=== PATIENT | male | born 1995 | race Caucasian/White ===

== ENCOUNTER 2019-12-03 08:00 | Emergency (ER) | payer OTHER, SELFPAY ==
[2019-12-03 08:10] VITALS: BP 153/75; PULSE 99; RESP 16; TEMP 36.8; O2SAT 100
--- NOTE | 2019-12-03 08:11 | ED.URI ---
HPI - URI/Sore Throat General Chief Complaint: Upper Respiratory Infection Stated Complaint: ear problems, cough and weak Time Seen by Provider: 12/03/19 08:17 Source: patient and RN notes reviewed Mode of arrival: ambulatory Limitations: no limitations History of Present Illness HPI Narrative: 24-year-old male presents with concern for nasal congestion, right ear pain, drainage, cough. Reports symptoms for 4 days. He denies fever, shortness of breath. Denies taking any [id number] medications. Reports frequent swimming MD elicited complaint: nasal congestion and other (Ear pain) Related Data Allergies Allergy/AdvReac Type Severity Reaction Status Date / Time No Known Allergies Allergy Unverified 12/01/18 09:10 Review of Systems Review of Systems: Narrative: CONSTITUTIONAL: Reports malaise. Denies chills, sweats, or fever. EYES: Denies visual changes, redness, or discharge. ENT: Reports rhinorrhea, congestion, ear pain. Denies sinus pain and sore throat. CARDIOVASCULAR: Denies chest pain, palpitations, or edema. RESPIRATORY: Reports cough. Denies dyspnea. GASTROINTESTINAL: Denies abdominal pain, nausea, vomiting, diarrhea SKIN: Denies rash or itching. MUSCULOSKELETAL: Denies myalgia. NEUROLOGIC: Denies headache. All systems reviewed & are unremarkable except as noted in HPI and below PMFSH Comments At time of signature, agree with nursing past medical, surgical, social and family history. There is no relevant family history pertinent to the presenting complaint Exam Narrative: Exam Narrative: GENERAL: Well-appearing, well-nourished, and in no acute distress. HEAD: Normocephalic EYES: PERRLA, conjunctivae clear ENT: Nares clear, turbinates edematous and erythematous, clear discharge. Mucous membranes moist. Left TM pearly au with dull light reflex, right TM not visible due to excessive drainage in the right canal; no tragal tenderness. Oropharynx not erythematous without lesions. Tonsils not enlarged and without exudate, no drooling, no hoarseness, no trismus, uvula midline. NECK: Supple. No lymphadenopathy CHEST: Clear to auscultation, breath sounds equal. No wheezing, rhonchi, rales, or stridor. No respiratory distress, speaks in full sentences. HEART: Regular rate and rhythm. No murmur heard. SKIN: Warm, dry, no rash. NEURO: Alert and oriented x3. PSYCH: Normal mood and affect Course Course Emergency Course: Patient is aware of diagnosis, understands and agrees to treatment plan. Anticipatory guidance given. Patient agrees to follow-up as directed and is aware of reasons to seek care at the emergency department. Portions of this record may have been created with voice recognition software Vital Signs Vital signs: Vital Signs Temperature 98.2 F 12/03/19 08:10 Pulse Rate 99 12/03/19 08:10 Respiratory Rate 16 12/03/19 08:10 Blood Pressure 153/75 H 12/03/19 08:10 Pulse Oximetry 100 12/03/19 08:10 Temperature 98.2 F 12/03/19 08:10 Pulse Rate 99 12/03/19 08:10 Respiratory Rate 16 12/03/19 08:10 Blood Pressure 153/75 H 12/03/19 08:10 Pulse Oximetry 100 12/03/19 08:10 Reviewed. MDM - URI/Sore Throat MDM Narrative Medical decision making narrative: Differential diagnosis considered: Strep pharyngitis, allergic rhinitis, upper respiratory tract infection, sinusitis, rhinosinusitis, nasopharyngitis. viral pharyngitis, otitis media, otitis externa, pneumonia, bronchitis, viral cough syndrome, viral syndrome, and influenza. Exam findings show no acute concerns or changes; patient is non-toxic appearing and is in no distress. Patient is appropriate for outpatient treatment and follow-up. Critical Care Time Critical Care Time Critical Care Time: No Discharge Plan Discharge Clinical Impression: Otitis media Qualifiers: Otitis media type: suppurative Chronicity: acute Laterality: right Recurrence: non-recurrent Spontaneous tympanic membrane rupture: with spontaneous rupture Melo
== END 2019-12-03 08:32 | disposition home or self-care (01) ==
PROVIDERS: Emergency Provider Nurse Practitioner
DX: H66.011 Acute suppurative otitis media with spontaneous rupture of ear drum, right ear (principal); J45.909 Unspecified asthma, uncomplicated
CPT/HCPCS: 99213; G0463

== ENCOUNTER 2020-10-24 15:19 | Emergency (ER) | payer OTHER, SELFPAY ==
--- NOTE | ~2020-10-24 | XR_ITS ---
EXAMINATION: XR ankle RT min 3V EXAM DATE: 10/24/2020 15:38 INDICATION: Inversion injury, medial and lateral right ankle pain. Initial encounter. TECHNIQUE: Right ankle frontal, lateral and oblique projections obtained and reviewed. There is no p rior study for comparison. FINDINGS: There is avulsion at the base of the right medial malleolus with about 6 mm of distraction and lateral dislocation of this, the talar dome, and the lateral malleolus. Corresponding oblique fra cture through the right distal fibular metaphysis into the distal tibiofibular syndesmosis, which renata ears widened. No definite posterior malleolar fracture identified. IMPRESSION: Right medial malleolar base, fibular metaphyseal fractures with mortise and syndesmosis disruption. Lateral displacement of talus. Reviewed, dictated and finalized at location A. IMPRESSION: Right medial malleolar base, fibular metaphyseal fractures with mo rtise and syndesmosis disruption. Lateral displacement of talus.
[2020-10-24 15:24] VITALS: BP 160/96; PULSE 102; RESP 16; TEMP 37.7; O2SAT 100
--- NOTE | 2020-10-24 15:27 | ED.LOWEXIN ---
HPI - Extremity Injury (Lower) General Chief Complaint: Extremity Injury, Upper Stated Complaint: rt ankle inj Time Seen by Provider: 10/24/20 15:27 Source: patient and RN notes reviewed History of Present Illness HPI Narrative: Patient is a 25-year-old male who presents the urgent care with complaints of right ankle pain and swelling. Patient states that he rolled the right ankle while rollerskating and [place] today. Patient states that happened just prior to arrival and he has not done anything for pain. Patient states it is very difficult to bear weight on the foot. No other acute complaints. No acute distress noted. Patient aware of the plan of care. Some parts of this dictation were generated by voice recognition software and may contain typographical and/or grammatical inaccuracies. Related Data Home Medications Medication Instructions Recorded Confirmed No Home Medications 10/24/20 10/24/20 Allergies Allergy/AdvReac Type Severity Reaction Status Date / Time No Known Allergies Allergy Verified 10/24/20 15:25 Review of Systems Review of Systems: Narrative: CONSTITUTIONAL: Denies fever, chills, or sweats. EYES: Denies visual changes, redness, or discharge. ENT: Denies rhinorrhea, congestion, sore throat, or otalgia. CARDIOVASCULAR: Denies chest pain, palpitations, or edema. RESPIRATORY: Denies cough or dyspnea. GASTROINTESTINAL: Denies abdominal pain, nausea, vomiting, or diarrhea. GENITOURINARY: Denies dysuria or hematuria. SKIN: Denies rash or itching. MUSCULOSKELETAL: Reports of right ankle pain and swelling NEUROLOGIC: Denies headache, numbness, or weakness. All other systems reviewed are negative, except as documented in HPI. PMFSH Comments At the time of my signature, I reviewed and agree with the nursing past medical, surgical, social, and family history. There is no relevant family history pertinent to the patient complaint. Exam Narrative: Exam Narrative: GENERAL: This is a well-nourished, well-developed patient, in no apparent distress. HEAD: normocephalic, atraumatic. EYES: PERRL. Sclera clear/white. Vision is grossly intact. EARS: External ears normal NOSE: External nose normal with no obvious nasal discharge, nares without redness, no rhinorrhea. THROAT: Mucous membranes moist NECK: Neck supple SKIN: warm, intact with no suspicious lesions or rash, good texture and turgor. NEURO: awake, alert, and oriented to person, place and time. There were no obvious focal neurologic abnormalities. EXTREMITIES: Moderate medial and lateral right ankle edema and tenderness. Positive strong right pedal pulse with capillary refill less than 2 seconds. Range of motion limited due to pain. Course Vital Signs Vital signs: Vital Signs Temperature 100 F H 10/24/20 15:24 Pulse Rate 102 H 10/24/20 15:24 Respiratory Rate 16 10/24/20 15:24 Blood Pressure 160/96 H 10/24/20 15:24 Pulse Oximetry 100 10/24/20 15:24 Temperature 100 F H 10/24/20 15:32 Pulse Rate 102 H 10/24/20 15:32 Respiratory Rate 16 10/24/20 15:32 Blood Pressure 160/96 H 10/24/20 15:32 Pulse Oximetry 100 10/24/20 15:32 Reviewed-patient is informed that they may have pre-hypertension or hypertension based on a blood pressure reading in the department. I recommend the patient call the primary care provider listed on their discharge instructions or a physician of their choice this week to arrange follow-up for further evaluation of possible pre-hypertension or hypertension. Procedures Orthopedic Splinting/Casting Injury #1: Side: right Lower Extremity Injury Location: ankle OCL: short leg Pre-Procedure Neuro Vascular Exam: normal Post-Procedure Neuro Vascular Exam: normal Other Orthopedic Equipment: crutches Additional Comments: Short leg OCL applied to the right lower extremity by chief radiology. Patient instructed on the use of crutches and rules while wearing the OCL.
[2020-10-24 15:32] VITALS: BP 160/96; PULSE 102; RESP 16; TEMP 37.7; O2SAT 100
[2020-10-24 16:05] VITALS: BP 140/80; PULSE 98
[2020-10-24] MEDS: IBUPROFEN 400 MG TABLET 800 MG PO (16:33)
--- NOTE | 2020-10-24 17:56 | PC.NURSE ---
1700 spoke with grandparent and uncle arriving to assist in transport home. reviewed discharge instructions at pt request. family assists pt to car in w/c, tolerates well. states pain lessening following ibuprofen
== END 2020-10-24 17:00 | disposition home or self-care (01) ==
PROVIDERS: Emergency Provider Nurse Practitioner Family
DX: S82.51XA Displaced fracture of medial malleolus of right tibia, initial encounter for closed fracture (principal); S89.301A Unspecified physeal fracture of lower end of right fibula, initial encounter for closed fracture; X50.9XXA Other and unspecified overexertion or strenuous movements or postures, initial encounter; Y93.51 Activity, roller skating (inline) and skateboarding
CPT/HCPCS: 29125; 73610; 99214; A9270; G0463

== ENCOUNTER → 2020-10-28 10:08 | Outpatient (CLI) | payer OTHER, SELFPAY ==
[2020-10-28 16:17] LABS: SARS-CoV-2 RNA PCR Negative
== END ==
PROVIDERS: Visit Provider Orthopaedic Surgery
DX: Z01.812 Encounter for preprocedural laboratory examination (principal); Z20.822 Contact with and (suspected) exposure to COVID-19
CPT/HCPCS: C9803; U0003; U0005

== ENCOUNTER 2020-10-30 17:38 | Inpatient (IN) | payer OTHER, SELFPAY ==
[2020-10-28 14:43] VITALS: BMI 25.3
--- NOTE | 2020-10-29 08:52 | P.PNAN_ITS ---
Anes - Initial Pre Proc Eval Procedure: Operation Date: 10/30/20 12:00 Proposed Procedures p Open Reduction Internal Fixation Bimalleolar Right Ankle Fracture - Vincent Sanchez MD Date/Time: 10/29/20 08:52 Surgeon: Vincent Sanchez MD Pre Op Diagnosis: Right Ankle Fx Patient Data Age: 25 Gender: M Height: 1.7 m Weight: 73.5 kg Allergies Allergy/AdvReac Type Severity Reaction Status Date / Time No Known Allergies Allergy Verified 10/30/20 09:52 Home Medications Medication Instructions Recorded Confirmed Type No Home Medications 10/24/20 10/28/20 History Patient hx anesthesia problems: none Family hx anesthesia problems: none [facility] Past Medical History Medical History (Updated 10/29/20 @ 08:52 by Desmond Farah DO) Asthma Bimalleolar fracture of right ankle Cerebral palsy Social History Social History Smoking status: Never smoker Alcohol intake: never Substance use: never Substance use type: does not use Living arrangements: with family Spiritual care concerns: No Anes - Eval Final PreProcedure Day of Procedure 10/29/20 08:52 Patient weight: overweight Heart: regular rate and rhythm Lungs: clear to auscultation and normal air movement Airway: Mallampati scale class II Neurological: alert and oriented Last oral intake: >/= 8 hours ASA classification: III Emergent: no Anesthetic plan: proceed Anesthesia type and monitoring: general LMA and standard monitoring Informed Consent: The patient's anesthetic plan and its attendant risks and benefits were discussed with the patient/family/POA. Questions were solicited and answers provided to the satisfaction of the patient/family/POA.
[2020-10-30] VITALS (10 sets, daily range): BP systolic 139–168; BP diastolic 74–94; PULSE 100–112; RESP 14–18; TEMP 36.2–37.2; O2SAT 94–99
--- NOTE | ~2020-10-30 | XR_ITS ---
EXAMINATION: XR surgery orthopedic, XR ankle LT 2V INDICATION: Open reduction and internal fixation of the right ankle TECHNIQUE: Three intraoperative fluoroscopic views of the right ankle and one intraoperative fluorosc opic view of the left ankle are submitted for review. Total fluoroscopic time was 248.6 seconds. COMPARISON: None available FINDINGS: Fluoroscopic images demonstrate plate and screw fixation of the distal fibula and screw fix ation of the medial malleolus. Alignment is anatomic. The left ankle appears normal. IMPRESSION: 1. Please refer to procedure note for full details. Reviewed, dictated and finalized at location A. IMPRESSION: 1. Please refer to procedure note for full details.
[2020-10-30] MEDS: LACTATED RINGERS 1,000 ML 30 ML IV CONT ×2 (10:10→16:38)
[2020-10-30] MEDS: KETOROLAC 15 MG/ML VIAL (*BKC) IV PUSH (10:19)
--- NOTE | 2020-10-30 12:02 | WPDHPUPDATE1 ---
History and Physical Update Update Date/Time: 10/30/20 12:02 History and Physical has been reviewed, including an updated exam of the patient. There are NO changes in the patient's condition. Risks, benefits, and alternatives have been discussed and questions answered. Patient agrees to proceed with procedure.
[2020-10-30] MEDS: ceFAZolin 2 GM/D5W 50 ML 2 GM/50 ML BAG IVPB ×2 (12:22→19:55)
[2020-10-30] MEDS: LIDO 1%/EPINEPHRINE 1:100,000 50 ML VIAL 30 ML INFILTRATE (12:52)
--- NOTE | 2020-10-30 14:07 | SUR.OPER ---
Dr. Sanchez made aware of 1 hour tourniquet time. An additional 30 minutes added
[2020-10-30] MEDS: ceFAZolin SODIUM 1 GM VIAL 2 GM IV PUSH (16:08)
--- NOTE | 2020-10-30 17:01 | P.OP_ITS ---
Procedure Note - Detailed Date of procedure: 10/30/20 Pre-op diagnosis: Right Ankle Fx Post-op diagnosis: other (1. Displaced bimalleolar fracture dislocation 2. Tibia fibula syndesmosis disruption) Procedure performed: 1. ORIF bimalleolar ankle fracture 2. ORIF distal tibia- fibula syndesmosis Description of procedure: Comminuted fracture dislocation with syndesmosis disruption. Moderate swelling and lateral foot erythema. Skin wrinkles present. Will keep inpatient for antibiotics and strict elevation. Implants: Arthrex distal fibular locking plate. 4.0 mm partially threaded cannulated screw medial. Syndesmosis tight rope fixation x 2. Anesthesia: GETA Surgeon: Vincent Sanchez MD Surveillance Operator: Daayn Watson PA-C Estimated blood loss (mL): 50 Tourniquet time (min): 120 Drains: No Complications: None Condition: stable Disposition: PACU Findings: Physician automotive parts counter assistant, Dayan Watson PA-C, required for surgery; including patient positioning, draping, tissue retraction, maintaining instrument position and fracture reduction, wound closure, and dressing placement. A general anesthetic was administered. The limb was prepped and draped in the usual sterile fashion with a well-padded tourniquet high on the thigh. A bump was placed under the hip. The limb was exsanguinated and the tourniquet inflated to 300 millimeters of mercury during the procedure. A longitudinal incision was created at the distal fibula. Careful dissection was carried down to bone. Perineal nerve branches were protected. The fracture was carefully exposed. Callus and debris was irrigated from the wound. The fracture was brought out to length. Reduction was accomplished with the reduction forceps. The fixation plate was contoured. Fixation was performed with a combination of cortical and cancellous screws. Fluoroscopy was used throughout the procedure to confirm anatomic reduction and appropriate placement of the implants. The medial malleolus was exposed with a longitudinal incision. The fracture was cleared of debris and irrigated. Anatomic reduction was obtained with the re duction tool. Biplanar fluoroscopy was used to assess the fracture reduction and guide placement of the K-wire. Two K-wires were placed parallel across the fracture site. The screw lengths were measured and drilled distally only. The anterior long partially threaded screw was placed, and the K-wire removed. The posterior screw cut the tight rope and was thus removed. It also had the effect of malreduction the fracture. The fracture was stable with one screw. The proximal tight rope was replaced. The tourniquet was released. Copious irrigation with antibiotic solution was performed periodically throughout the procedure. Meticulous hemostasis was obtained. Wound was closed in layers with 2-0 Vicryl suture 3-0 Monocryl suture and 3-0 Nylon. A sterile splint with padding was applied. The patient was extubated and brought to the recovery room in stable condition. There were no complications.
--- NOTE | 2020-10-30 17:45 | ADMGEN ---
This patient, Esau Pryor, was admitted to Medical Room 340-01. Patient/family oriented to hospital policies and general routines including ID bracelet, bed and alarms, visiting hours, pain management, procedures, bathroom and other care routines, personal items, smoking policy, room service/diet, and visiting hours. Information on how to activate the Rapid Response Team has been discussed. Patient/Family are encouraged to report perceived risks to care and to ask questions if they do not understand what they are told or what they should do.
[2020-10-30] MEDS: KETOROLAC 15 MG/ML VIAL (*BKC) IM (18:44)
[2020-10-30] MEDS: ASPIRIN 81 MG ENTERIC TABLET PO (18:45)
[2020-10-31] VITALS (7 sets, daily range): BP systolic 130–153; BP diastolic 68–81; PULSE 88–107; RESP 16–20; TEMP 36.1–36.7; O2SAT 97–100
[2020-10-31] MEDS: KETOROLAC 15 MG/ML VIAL (*BKC) IM ×2 (00:02→05:50)
[2020-10-31] MEDS: ceFAZolin 2 GM/D5W 50 ML 2 GM/50 ML BAG IVPB ×3 (03:45→20:35)
[2020-10-31] MEDS: DOCUSATE SODIUM 100 MG CAPSULE PO ×2 (09:52→16:41)
[2020-10-31] MEDS: ASPIRIN 81 MG ENTERIC TABLET PO ×2 (09:52→16:41)
--- NOTE | 2020-10-31 12:24 | WPDANESPN ---
Anes - Prog Note Post-Op Date/Time: 10/31/20 12:24 Cardiovascular status: normal Respiratory status: normal Airway patency: baseline Mental status: baseline Post-Op hydration status: normal Vital Signs: Last Vital Signs Temp 36.4 C 10/31/20 03:58 Pulse 107 H 10/31/20 05:47 Resp 16 10/31/20 03:58 BP 153/80 H 10/31/20 03:58 Pulse Ox 97 10/31/20 05:47 Pain Score (VAS): 0 I/O: Intake & Output 10/30/20 10/31/20 10/31/20 23:59 07:59 15:59 Intake Total 650 890 240 Output Total 400 300 Balance 650 490 -60 Post-procedural complaints: none Patient Feedback: Patient satisfied with anesthetic care.
--- NOTE | 2020-10-31 12:28 | PM.PNORT ---
Progress Note: A&P Assessment and Plan (1) Bimalleolar fracture of right ankle: Qualifiers: Encounter type: initial encounter Fracture type: closed Qualified Code(s): S82.841A - Displaced bimalleolar fracture of right lower leg, initial encounter for closed fracture Code(s): S82.841A - Displaced bimalleolar fracture of right lower leg, initial encounter for closed fracture Status: Acute (2) No active medical problems: Status: Acute (3) Cellulitis and abscess of foot excluding toe: Code(s): L03.119 - Cellulitis of unspecified part of limb; L02.619 - Cutaneous abscess of unspecified foot Status: Acute Assessment and Plan: Doing well post op day 1 Continue IV ancef. Will check wound tomorrow. Possible discharge if edema and erythema improved. Subjective Subjective Date/Time Seen: 10/31/20 21:44 Interval history: status post ankle ORIF doing well postoperative day 1. Pain well controlled Mobilizing well with therapy Exam Narrative: Exam Narrative: Afebrile. No distress. Short leg splint intact. No warmth or erythema Neurovascular status intact, wiggles toes Objective Data Vital Signs Vital Signs: Vital Signs - 24 hr 10/31/20 00:10 10/31/20 03:58 10/31/20 05:47 Temperature 36.3 C L 36.4 C Pulse Rate 96 96 107 H Respiratory Rate 16 16 Blood Pressure 147/81 H 153/80 H Pulse Oximetry 99 98 97 10/31/20 10:00 10/31/20 14:00 10/31/20 18:00 Temperature 36.7 C 36.4 C 36.1 C L Pulse Rate 98 91 88 Respiratory Rate 18 18 20 Blood Pressure 140/79 144/71 H 130/68 Pulse Oximetry 97 99 100 10/31/20 20:39 Temperature 36.2 C L Pulse Rate 95 Respiratory Rate 16 Blood Pressure 148/79 H Pulse Oximetry 99 Intake/Output Intake/Output: Intake & Output 10/28/20 10/29/20 10/30/20 10/31/20 23:59 23:59 23:59 23:59 Intake Total 700 2410 Output Total 1800 Balance 700 610 Meds/Results Medications: Active Medications Generic Name Dose Route Start Last Admin Trade Name Freq PRN Reason Stop Dose Admin Aspirin 81 mg 10/30/20 17:38 10/31/20 16:41 Aspirin 81 Mg Enteric Tablet PO 81 mg BID LAMAR Administration Docusate Sodium 100 mg 10/30/20 17:38 10/31/20 16:41 Docusate Sodium 100 Mg Capsule PO 100 mg BID LAMAR Administration Cefazolin Sodium 2 gm in 50 mls @ 100 mls/hr 10/30/20 20:00 10/31/20 20:35 Ancef 2 Gm/D5w 50 Ml IVPB 11/01/20 20:01 100 mls/hr Q8H LAMAR Administration Magnesium Hydroxide 30 ml 10/30/20 17:38 Magnesium Hydroxide Susp 30 Ml Udc PO BID PRN Constipation Ondansetron HCl 4 mg 10/30/20 17:38 Ondansetron Inj 4 Mg/2 Ml Vial IV PUSH Q4H PRN Nausea And Vomiting Oxycodone HCl 10 mg 10/30/20 17:38 10/31/20 17:08 Oxycodone Hcl (*Crx) 5 Mg Tab Ir PO 10 mg Q4H PRN Administration Pain Rated 7-10 Oxycodone HCl 5 mg 10/30/20 17:38 Oxycodone Hcl (*Crx) 5 Mg Tab Ir PO Q4H PRN Pain Rated 4-6 Radiology Results: ITS Impressions Ankle X-Ray 10/30/20 23:14 IMPRESSION: 1. Please refer to procedure note for full details. Intraoperative X-Ray 10/30/20 23:14
[2020-10-31] MEDS: oxyCODONE HCL (*CRX) 5 MG TAB IR 10 MG PO ×3 (13:07→23:47)
[2020-11-01] MEDS: ceFAZolin 2 GM/D5W 50 ML 2 GM/50 ML BAG IVPB (04:48)
[2020-11-01] MEDS: oxyCODONE HCL (*CRX) 5 MG TAB IR PO ×2 (04:51→08:53)
[2020-11-01 06:06] VITALS: BP 132/72; PULSE 92; RESP 16; TEMP 36.3; O2SAT 99
[2020-11-01] MEDS: ASPIRIN 81 MG ENTERIC TABLET PO (08:51)
[2020-11-01] MEDS: DOCUSATE SODIUM 100 MG CAPSULE PO (08:51)
--- NOTE | 2020-11-01 10:06 | PM.DS ---
DS: Admitting Diagnosis Admitting Diagnosis Admitting Diagnosis: Cellulitis and marissa ankle fracture DS: Discharge Diagnosis Discharge Diagnosis (1) Cellulitis and abscess of foot excluding toe: Code(s): L03.119 - Cellulitis of unspecified part of limb; L02.619 - Cutaneous abscess of unspecified foot Status: Acute (2) Bimalleolar fracture of right ankle: Qualifiers: Encounter type: initial encounter Fracture type: closed Qualified Code(s): S82.841A - Displaced bimalleolar fracture of right lower leg, initial encounter for closed fracture Code(s): S82.841A - Displaced bimalleolar fracture of right lower leg, initial encounter for closed fracture Status: Acute Assessment and Plan: POD #2 ORIF Bimalleolar ankle fracture. Patient is progressing very well with physical therapy. He understands that he is nonweightbearing and must use a walker. He understands he must keep his leg elevated to decrease swelling and heal from the cellulitis. We had a lengthy discussion about the risks if he does not follow these instructions. Patient shows good understanding. We discussed postoperative wound care, expectations, exercises. He shows good understanding. I would like him to take Keflex 4 times a day for the next 2 weeks. He will call us if he notices any fever or worsening pain or swelling. We will follow up with him likely Monday. Patient may discharge home. Ortho instructions: D/C home Office will call to set up appointment for Monday. Wound Care: Keep splint on, clean, and dry. PT: Non weight bearing with walker. Antibiotic: Keflex four times a day for 2 weeks Pain medication: Percocet. May take ibuprofen in between DS: Summary Hospital Course Hospital Course: Patient was admitted to the hospital Monday after ORIF by [facility]. There was found that patient had cellulitis with significant swelling. He was admitted to the hospital for IV antibiotics. Patient participated very well with physical therapy. He shows good understanding that he must be nonweightbearing for the next 2 weeks. Cellulitis has decreased and looks to be responding to the Keflex. Time Spent with Patient Time attestation: Total time spent providing and/or coordinating discharge services: Exam Narrative: Exam Narrative: Pleasant 25-year-old male. No acute distress. Alert and oriented x3. Afebrile. Short leg splint intact. Some dry blood drainage from incision sites. No drainage currently. decreased erythema and swelling. Slight warmth. Cellulitis looks much better than it did prior to surgery. Neurovascular status intact, wiggles toes. distal pulses palpable. Good capillary refill. Discharge Plan Discharge Attending physician on discharge: Vincent Sanchez Discharging Clinician: Dayan Watson Patient Disposition: Home, Self-Care Activity: other - see discharge instructions Diet: regular Wound Care Instructions: other - see discharge instructions Discharge Instructions: Ortho instructions: D/C home Office will call to set up appointment for Monday. Wound Care: Keep splint on, clean, and dry. PT: Non weight bearing with walker. Antibiotic: Keflex four times a day for 2 weeks Pain medication: Percocet. May take ibuprofen in between. Patient Instructions: Antibiotic Form Stand Alone Forms: General Discharge Information Follow-up/Referrals: Dayan Watson PA [Physician Outreach Manager] - Discharge Medications: New cephalexin 500 mg capsule 500 mg PO QID 14 Days Qty: 56 RF: 0 oxycodone-acetaminophen 5-325 mg tablet 1 - 2 tablet PO Q4-6H MDD 6 PRN (Reason: pain) Qty: 30 RF: 0 Date of admission: 10/30/20 17:38 Primary Care Provider: PHYSICIAN,CRM COORDINATOR Admitting Provider: Vincent Sanchez Attending physician on admission: Vincent Sanchez Condition: Stable
== END 2020-11-01 12:50 | disposition home or self-care (01) | DRG 493 ==
LOC: ANH3MED 17:41
PROVIDERS: Admitting Provider Orthopaedic Surgery; Visit Provider Orthopaedic Surgery
PROC: 0QSJ04Z Reposition Right Fibula with Internal Fixation Device, Open Approach (ICD-10-PCS; principal; 2020-10-30 12:00)
DX: S82.841A Displaced bimalleolar fracture of right lower leg, initial encounter for closed fracture (principal); L03.119 Cellulitis of unspecified part of limb; L02.619 Cutaneous abscess of unspecified foot; S93.431A Sprain of tibiofibular ligament of right ankle, initial encounter; X58.XXXA Exposure to other specified factors, initial encounter; J45.909 Unspecified asthma, uncomplicated; G80.9 Cerebral palsy, unspecified
CPT/HCPCS: 73600; 97161; A9270; C1713; C1769; J0131; J0690; J1170; J1885; J2250; J2405; J2704; J3010; J7120

== ENCOUNTER 2021-11-05 08:03 | Emergency (ER) | payer OTHER, SELFPAY ==
[2021-11-05 08:07] VITALS: BP 168/87; PULSE 96; RESP 18; TEMP 37.3; O2SAT 100
--- NOTE | 2021-11-05 08:07 | ED.URI ---
HPI - URI/Sore Throat General Chief Complaint: Upper Respiratory Infection Stated Complaint: cough and congestion fever Time Seen by Provider: 11/05/21 08:16 Source: patient, RN notes reviewed and old records reviewed Mode of arrival: ambulatory Limitations: no limitations History of Present Illness HPI Narrative: 26-year-old male who presents Express Care with complaints of initially sore throat which has improved but he has continued nasal and chest congestion with cough for the past 3 days.Patient reports that he has had low grade temperature denies any body aches or chills. Patient denies any shortness of breath with no tachypnea noted with SAO2 100% on room air. Patient has had COVID vaccinations and flu shot. MD elicited complaint: cough, sore throat, rhinorrhea and nasal congestion Onset (ago): day(s) (3) Able to tolerate fluids by mouth: Yes Treatments prior to arrival: cold medicine Related Data Allergies Allergy/AdvReac Type Severity Reaction Status Date / Time No Known Allergies Allergy Verified 10/30/20 18:21 Review of Systems Review of Systems: CONSTITUTIONAL: Low grade fever,no chills, or sweats. EYES: Denies visual changes, redness, or discharge. ENT: Positive for rhinorrhea, congestion, sore throat, no otalgia. CARDIOVASCULAR: Denies chest pain, palpitations, or edema. RESPIRATORY:Positive for cough denies dyspnea. GASTROINTESTINAL: Denies abdominal pain, nausea, vomiting, or diarrhea. GENITOURINARY: Denies dysuria or hematuria. SKIN: Denies rash or itching. MUSCULOSKELETAL: Denies back pain, joint pain, or myalgia. NEUROLOGIC: Denies headache, numbness, or weakness. PSYCHIATRIC: Denies anxiety or depression. [facility] Past Medical History Medical History Asthma Bimalleolar fracture of right ankle Cerebral palsy Family History Family History Mother Depression Father Depression Grandparent Asthma Cancer Hypertension Grandparent Cancer Heart disease Social History Social History Smoking status: Never smoker Second hand tobacco smoke exposure: No Alcohol intake: never Substance use: never Substance use type: does not use Gender identity (if verbalized by the patient): Male Sexual Orientation (if Verbalized by the Patient): Straight or Heterosexual Spiritual care concerns: No Comments At time of signature, agree with nursing past medical, surgical, social and family history. There is no relevant family history pertinent to the presenting complaint Exam Narrative: GENERAL: Well-appearing, well-nourished, and in no acute distress. HEAD: Normocephalic, atraumatic. EYES: PERRLA and EOMI. ENT: Nares red with clear rhinorrhea no epistaxis. Mucous membranes moist.TM's normal with dull light reflex, throat red with some white lesions on right tonsil with some redness, post nasal discharge. NECK: Supple.lymphadenopathy CHEST: Clear to auscultation. No respiratory distress.frequent cough noted no tachypnea, SAO2 100% on room air HEART: Regular rate and rhythm. No murmur heard. Normal peripheral pulses. ABDOMEN: Soft, nontender, nondistended, normal active bowel sounds. EXTREMITIES: Normal range of motion. No edema. SKIN: Warm, dry, no rash. NEURO: No focal deficits. Alert and oriented x3. Course Course Level of Care: Express Care Visit Vital Signs Vital signs: Vital Signs Temperature 37.3 C 11/05/21 08:07 Pulse Rate 96 11/05/21 08:07 Respiratory Rate 18 11/05/21 08:07 Blood Pressure 168/87 H 11/05/21 08:07 Pulse Oximetry 100 11/05/21 08:07 Oxygen Delivery Room Air 11/05/21 08:07 Temperature 37.3 C 11/05/21 08:07 Pulse Rate 96 11/05/21 08:07 Respiratory Rate 18 11/05/21 08:07 Blood Pressure 168/87 H 11/05/21 08:07 Pulse Oximetry 100 11/05/21 08:07 Oxygen Delivery Room Air
== END 2021-11-05 08:59 | disposition home or self-care (01) ==
PROVIDERS: Emergency Provider Registered Nurse; PCP Family Medicine
DX: J03.80 Acute tonsillitis due to other specified organisms (principal); R05.9 Cough, unspecified; J45.909 Unspecified asthma, uncomplicated
CPT/HCPCS: 87081; 87880; 99213; G0463

== ENCOUNTER 2022-02-02 11:19 | Outpatient (CLI) | payer OTHER, SELFPAY ==
[2022-02-02 18:45] LABS: Basophils Absolute Auto 0.1 K/mm3 (0.0-0.1); Basophils Percent Auto 0.9 % (0.2-1.2); Eosinophils Absolute Auto 0.1 K/mm3 (0-0.3); Eosinophils Percent Auto 0.9 % (0-4.4); Hematocrit 49.8 % (42.0-52.0); Hemoglobin 14.5 g/dL (14.0-18.0); Immature Granulocyte Absolute 0.02 K/mm3 (0.00-0.031); Immature Granulocyte Percent A 0.4 % (0-0.5); Lymphocytes Percent Auto 22.1 % (18.3-44.2); Mean Corpuscular HGB Conc 29.1 g/dl (32-36); Mean Corpuscular Hemoglobin 22.5 pg (26-34); Mean Corpuscular Volume 77.3 fl (80-100); Mean Platelet Volume 11.1 fl (7.4-10.4); Monocytes Absolute Auto 0.5 K/mm3 (0.1-0.6); Monocytes Percent Auto 8.3 % (2.6-8.5); Neutrophils Absolute Auto 3.7 K/mm3 (1.3-6.7); Neutrophils Percent Auto 67.4 % (45.5-73.1); Platelet Count Result 256 k/mm3 (150-375); Red Blood Count 6.44 M/mm3 (4.6-6.20); Red Cell Distribution Width 15.9 % (11.5-14.5); White Blood Count 5.4 K/mm3 (4.5-10.0)
[2022-02-02 20:09] LABS: Alanine Aminotransferase 36 U/L (6-50); Albumin Level 4.9 g/dL (3.5-5.1); Alkaline Phosphatase 90 U/L (38-126); Anion Gap 10 mmol/L (8-16); Aspartate Amino Transferase 66 U/L (17-59); Bilirubin,Total 0.6 mg/dL (0.2-1.3); Blood Urea Nitrogen 12 mg/dL (9-20); Calcium 9.4 mg/dL (8.4-10.2); Carbon Dioxide 25 mmol/L (22-30); Chloride 103 mmol/L (98-107); Cholesterol 267 mg/dL (0-200); Estimated Glomerular Filt Rate > 60; Glucose 100 mg/dL (65-110); HDL Direct 53 mg/dL; Potassium 4.4 mmol/L (3.4-5.0); Sodium 138 mmol/L (137-145); Triglycerides 116 mg/dL (<150)
[2022-02-02 20:21] LABS: LDL Cholesterol Direct 162 mg/dL
== END 2022-02-02 11:20 | disposition home or self-care (01) ==
LOC: ANHBWCLAB 11:20
PROVIDERS: PCP Family Medicine; Visit Provider Family Medicine
DX: Z00.00 Encounter for general adult medical examination without abnormal findings (principal); E66.9 Obesity, unspecified; I10 Essential (primary) hypertension
CPT/HCPCS: 36415; 80053; 80061; 84443; 85025

== ENCOUNTER 2022-05-09 11:22 | Outpatient (CLI) | payer OTHER, SELFPAY ==
[2022-05-09 20:23] LABS: Alanine Aminotransferase 56 U/L (6-50); Albumin Level 4.6 g/dL (3.5-5.1); Alkaline Phosphatase 87 U/L (38-126); Aspartate Amino Transferase 62 U/L (17-59); Bilirubin,Total 0.7 mg/dL (0.2-1.3)
[2022-05-09 20:50] LABS: Hepatitis B Surface Antigen Negative (Negative)
[2022-05-09 20:58] LABS: HAV RESULT Negative (Negative); Hepatitis B Core IgM Result Negative (Negative)
[2022-05-09 21:06] LABS: Hepatitis C Virus Antibody Negative (Negative)
[2022-05-14 16:27] LABS: ALT 45 U/L (9-46); Alpha-2-Macroglobulin 248 mg/dL (106-279); Apolipoprotein A1 161 mg/dL (94-176); Fibrosis Score 0.21; Fibrosis Stage F0; GGT 45 U/L (3-70); Haptoglobin 108 mg/dL (43-212); Necroinflammat Act Grade A0-A1; Total Bilirubin 0.5 mg/dL (0.2-1.2)
== END 2022-05-09 11:23 | disposition home or self-care (01) ==
LOC: ANHBWCLAB 11:26
PROVIDERS: PCP Family Medicine; Visit Provider Family Medicine
DX: R74.8 Abnormal levels of other serum enzymes (principal)
CPT/HCPCS: 36415; 80074; 80076; 81596

== ENCOUNTER 2023-10-23 08:25 | Outpatient (CLI) | payer OTHER, SELFPAY ==
[2023-10-23 19:17] LABS: Basophils Absolute Auto 0.1 K/mm3 (0.0-0.1); Eosinophils Absolute Auto 0.1 K/mm3 (0-0.3); Eosinophils Percent Auto 1.9 % (0-4.4); Hematocrit 52.4 % (42.0-52.0); Hemoglobin 16.5 g/dL (14.0-18.0); Immature Granulocyte Absolute 0.01 K/mm3 (0.00-0.031); Immature Granulocyte Percent A 0.2 % (0-0.5); Lymphocytes Absolute Auto 1.44 K/mm3 (0.9-3.2); Lymphocytes Percent Auto 24.7 % (18.3-44.2); Mean Corpuscular HGB Conc 31.5 g/dl (32-36); Mean Corpuscular Hemoglobin 27.4 pg (26-34); Mean Corpuscular Volume 86.9 fl (80-100); Mean Platelet Volume 10.8 fl (7.4-10.4); Monocytes Absolute Auto 0.6 K/mm3 (0.1-0.6); Monocytes Percent Auto 9.6 % (2.6-8.5); Neutrophils Absolute Auto 3.7 K/mm3 (1.3-6.7); Neutrophils Percent Auto 62.6 % (45.5-73.1); Platelet Count Result 220 k/mm3 (150-375); Red Blood Count 6.03 M/mm3 (4.6-6.20); Red Cell Distribution Width 14.1 % (11.5-14.5); White Blood Count 5.8 K/mm3 (4.5-10.0)
[2023-10-23 20:19] LABS: Alanine Aminotransferase 36 U/L (6-50); Albumin Level 4.7 g/dL (3.5-5.1); Alkaline Phosphatase 73 U/L (38-126); Anion Gap 6 mmol/L (4-12); Aspartate Amino Transferase 48 U/L (17-59); Blood Urea Nitrogen 15 mg/dL (9-20); Calcium 10.1 mg/dL (8.4-10.2); Carbon Dioxide 25 mmol/L (22-30); Chloride 107 mmol/L (98-107); Cholesterol 265 mg/dL (0-200); Estimated Glomerular Filt Rate > 60; Glucose 93 mg/dL (65-110); HDL Direct 54 mg/dL; Potassium 4.5 mmol/L (3.4-5.0); Sodium 138 mmol/L (137-145); Triglycerides 189 mg/dL (<150)
[2023-10-23 20:30] LABS: LDL Cholesterol Direct 159 mg/dL
== END 2023-10-23 08:26 | disposition home or self-care (01) ==
LOC: ANHBWCLAB 08:26
PROVIDERS: PCP Nurse Practitioner Adult Health; Visit Provider Family Medicine
DX: E66.9 Obesity, unspecified (principal); G80.9 Cerebral palsy, unspecified; I10 Essential (primary) hypertension; J45.909 Unspecified asthma, uncomplicated; R74.8 Abnormal levels of other serum enzymes; S93.439A Sprain of tibiofibular ligament of unspecified ankle, initial encounter; Z00.00 Encounter for general adult medical examination without abnormal findings
CPT/HCPCS: 36415; 80053; 80061; 85025